=== PATIENT | male | born 1940 | race Caucasian/White ===

== ENCOUNTER 2017-01-28 17:17 | Emergency (ER) | payer MEDICARE, BC ==
[2017-01-28 17:47] VITALS: BP 164/109
--- NOTE | 2017-01-28 18:46 | EDM.PDOC ---
ED HPI GENERAL MEDICAL PROBLEM - General Chief Complaint: General Stated Complaint: SOB/CHEST PAIN Time Seen by Provider: 01/28/17 18:30 Source of Information: Reports: Patient History Limitations: Reports: No Limitations - History of Present Illness INITIAL COMMENTS - FREE TEXT/NARRATIVE: Patient reports developing shortness of breath two to three hours prior to arrival to emergency room after eating at [employer]. He states he became short of breath and felt like he could not get enough air. Two hours later he felt chest pain. He describes the pain as stabbing and sharp chest pain to his left chest. He reports he also had hiccups, which have now resolved. Onset: Today Onset Time: 15:30 Location: Reports: Chest - Related Data Allergies Allergy/AdvReac Type Severity Reaction Status Date / Time No Known Allergies Allergy Verified 03/05/16 08:05 Home Meds: Home Meds Aspirin [Adult Low Dose Aspirin EC] 325 mg PO DAILY 01/20/14 [History] Metoprolol Succinate 50 mg PO DAILY 04/06/16 [History] Sucralfate [Carafate] 1 gm PO ASDIRECTED PRN 01/28/17 [History] Past Medical History HEENT History: Reports: Hard of Hearing, Impaired Vision Other HEENT History: hearing aides, glasses Cardiovascular History: Reports: Hypertension Gastrointestinal History: Reports: Chronic Diarrhea, Colon Polyp, Hiatal Hernia , Other (See Below) (EGD, esophageal dilations.) Genitourinary History: Reports: Chronic Renal Insuffiency Musculoskeletal History: Reports: Arthritis Neurological History: Reports: None Endocrine/Metabolic History: Reports: Obesity/BMI 30+ Oncologic (Cancer) History: Reports: Basal Cell Carcinoma - Infectious Disease History Infectious Disease History: Reports: Chicken Pox, Measles, Mumps, Shingles - Past Surgical History Cardiovascular Surgical History: Reports: None GI Surgical History: Reports: Appendectomy, Cholecystectomy, Colonoscopy, EGD, Esophageal Dilatation, Polypectomy Endocrine Surgical History: Reports: None Neurological Surgical History: Reports: Laminectomy, Lumbar Spine Dermatological Surgical History: Reports: Skin Biopsy Social & Family History - Tobacco Use Smoking Status *Q: Former Smoker Years of Tobacco use: 6 Packs/Tins Daily: 1 Used Tobacco, but Quit: Yes Month Tobacco Last Used: 1960 Second Hand Smoke Exposure: Yes - Caffeine Use Caffeine Use: Reports: Tea - Alcohol Use Days Per Week of Alcohol Use: 2 Number of Drinks Per Day: 2 Total Drinks Per Week: 4 - Recreational Drug Use Recreational Drug Use: No ED ROS GENERAL - Review of Systems Review Of Systems: See Below Constitutional: Denies: Fever, Chills, Malaise, Weakness, Diaphoresis, Decreased Appetite, Weight Loss HEENT: Denies: Throat Pain, Throat Swelling Respiratory: Reports: Shortness of Breath. Denies: Wheezing, Cough, Sputum, Hemoptysis Cardiovascular: Reports: Chest Pain. Denies: Dyspnea on Exertion, Edema, Lightheadedness, Orthopnea, Palpitations, PND, Syncope Endocrine: Reports: No Symptoms GI/Abdominal: Reports: Other (He complains of intermittent constipation and diarrhea since cholecystectomy.). Denies: Abdominal Pain, Anorexia, Black Stool , Bloody Stool, Difficulty Swallowing, Hematemesis, Hematochezia, Melena, Nausea , Vomiting : Reports: No Symptoms Musculoskeletal: Reports: No Symptoms Skin: Reports: No Symptoms Neurological: Denies: Dizziness, Headache, Syncope Psychiatric: Reports: No Symptoms Hematologic/Lymphatic: Reports: No Symptoms, Other (He reports recent diagnosis of CLL) Immunologic: Reports: No Symptoms ED EXAM, GENERAL - Physical Exam Exam: See Below Exam Limited By: No Limitations General Appearance: Alert, WD/WN, No Apparent Distress Eye Exam: Bilateral Eye: PERRL Ears: Normal External Exam, Normal Canal, Hearing Grossly Normal, Normal TMs Nose: Normal Inspection Throat/Mouth: Normal Inspection, Normal Lips, Normal Teeth, Normal Gums, Normal Oropharynx, Normal Voice, No Airway Compromise Head: Atraumatic, Normocephalic Neck: Normal Inspection, Supple, Non-Tender, Full Range of Motion. No: Limited Range of Motion, Lymphadenopathy (R), Lymphadenopathy (L) Respiratory/Chest: No Respiratory Distress, Lungs Clear, Normal Breath Sounds, No Accessory Muscle Use, Chest Non-Tender Cardiovascular: Normal Peripheral Pulses, Regular Rate, Rhythm, No Edema, No Gallop, No Murmur Peripheral Pulses: 2+: Carotid (L), Carotid (R), Radial (L), Radial (R), Dorsalis Pedis (L), Dorsalis Pedis (R) GI/Abdominal: Normal Bowel Sounds, Soft, Non-Tender, No Organomegaly, No Distention, No Mass. No: Guarding, Rebound, Tender Back Exam: Normal Inspection, Full Range of Motion. No: CVA Tenderness (R), CVA Tenderness (L) Extremities: Normal Inspection, Normal Range of Motion, Non-Tender, No Pedal Edema, Normal Capillary Refill. No: Pedal Edema Neurological: Alert, Oriented, CN II-XII Intact, Normal Cognition, No Motor/ Sensory Deficits Psychiatric: Normal Affect, Normal Mood Skin Exam: Warm, Dry, Intact, Normal Color, No Rash Lymphatic: No Adenopathy EKG INTERPRETATION EKG Date: 01/28/17 Rhythm: NSR P-wave: present QRS: normal ST-T: normal Course - Vital Signs Last Recorded V/S: Last Vital Signs Temp 36.3 C 01/28/17 18:04 Pulse 75 01/28/17 18:04 Resp 14 01/28/17 18:04 BP 164/109 H 01/28/17 18:04 Pulse Ox 95 01/28/17 18:04 - Orders/Labs/Meds Orders: Active Orders 24 hr Category Date Time Status EKG Documentation Completion [RC] ASDIRECTED Care 01/28/17 18:47 Active Chest 1V Frontal [CR] Stat Exams 01/28/17 18:34 Taken EKG 12 Lead [EK] Routine Ther 01/28/17 18:15 Ordered Labs: Laboratory Tests 01/28/17 01/28/17 Range/Units 18:53 18:53 Sodium 141 (140-148) mmol/L Potassium 4.6 (3.6-5.2) mmol/L Chloride 106 (100-108) mmol/L Carbon Dioxide 26 (21-32) mmol/L Anion Gap 8.8 (5.0-14.0) mmol/L BUN 30 H (7-18) mg/dL Creatinine 2.3 H (0.8-1.3) mg/dL Est Cr Clr Drug Dosing 29.52 mL/min Estimated GFR (MDRD) 28 L (>60) Glucose 100 (74-106) mg/dL Calcium 9.7 (8.5-10.1) mg/dL Total Bilirubin 0.5 (0.2-1.0) mg/dL AST 16 (15-37) U/L ALT 23 (12-78) U/L Alkaline Phosphatase 82 (46-116) U/L Troponin I < 0.017 (0.000-0.056) ng/mL Total Protein 6.9 (6.4-8.2) g/dL Albumin 3.8 (3.4-5.0) g/dL Globulin 3.1 (2.3-3.5) g/dL Albumin/Globulin Ratio 1.2 (1.2-2.2) - Radiology Interpretation Free Text/Narrative:: Chest x-ray wet read, no acute findings noted. X-ray also reviewed per Dr. Espinosa, he is in agreement. - Re-Assessments/Exams Free Text/Narrative Re-Assessment/Exam: 01/28/17 1900 Patient resting, no complaints of pain or SOB. 1944 went in to speak to patient about lab work, patient left. 01/28/17 20:26 Departure - Departure Time of Disposition: 20:00 Disposition: Home, Self-Care 01 Condition: fair Clinical Impression: Acid reflux disease - Discharge Information Instructions: Heartburn, [id number], Gastroesophageal Reflux Disease, Adult, [id number] Referrals: PCP,None [Primary Care Provider] - Forms: ED Department Discharge Additional Instructions: Continue use of carafate, and add omeprazole 20 mg PO daily. Return to see your primary care provider for further workup. - My Orders Last 24 Hours: My Active Orders 01/28/17 18:15 EKG 12 Lead [EK] Routine 01/28/17 18:34 Chest 1V Frontal [CR] Stat 01/28/17 18:47 EKG Documentation Completion [RC] ASDIRECTED - Assessment/Plan Last 24 Hours: My Active Orders 01/28/17 18:15 EKG 12 Lead [EK] Routine 01/28/17 18:34 Chest 1V Frontal [CR] Stat 01/28/17 18:47 EKG Documentation Completion [RC] ASDIRECTED
--- NOTE | 2017-01-31 09:08 | CR ---
Chest 1V Frontal FINDINGS: The heart and vascular structures are normal in appearance. No infiltrates or effusions ar e demonstrated. The skeletal structures are unremarkable. IMPRESSION: Negative exam.
== END 2017-01-28 20:46 | disposition home or self-care (01) ==
LOC: JP.ED 17:17
DX: K21.9 Gastro-esophageal reflux disease without esophagitis (principal); N18.9 Chronic kidney disease, unspecified; I12.9 Hypertensive chronic kidney disease with stage 1 through stage 4 chronic kidney disease, or unspecified chronic kidney disease; E66.9 Obesity, unspecified; Z87.891 Personal history of nicotine dependence; Z90.49 Acquired absence of other specified parts of digestive tract; Z90.89 Acquired absence of other organs; Z79.82 Long term (current) use of aspirin; Z79.899 Other long term (current) drug therapy
CPT/HCPCS: 36415; 71010; 71010-26; 80053; 84484; 93005; 93010; 99283; 99285-25